=== PATIENT | male | born 1990 ===

== ENCOUNTER 2024-09-14 03:47 | Emergency (ER) | payer BC ==
[~2024-09-14] VITALS: Ht 180.3 cm; Wt 79.4 kg
[2024-09-14 04:22] VITALS: BP 132/84; TEMP 98; O2SAT 99
[2024-09-14] MEDS ORDERED: KETOROLAC TROMETHAMINE INJ 30 MG/ML VIAL ONE (05:03)
[2024-09-14] MEDS ORDERED: CYCLOBENZAPRINE 10 MG TABLET ONE (05:03)
[2024-09-14] MEDS: CYCLOBENZAPRINE 10 MG TABLET PO ONE (05:09)
[2024-09-14] MEDS: KETOROLAC TROMETHAMINE INJ 30 MG/ML VIAL IM ONE (05:09)
== END 2024-09-14 05:33 | disposition left against medical advice (07) ==
LOC: ER 03:55
DX: M54.12 Radiculopathy, cervical region (principal)
CPT/HCPCS: 99285; 72125; 96372; J1885